=== PATIENT | female | born 1995 | race Hispanic/Latino ===

== ENCOUNTER 2016-07-31 01:47 | Emergency (ER) | payer OTHER ==
[~2016-07-31] VITALS: Ht 160 cm; Wt 83.9 kg
[~2016-07-31 01:47] MED LIST: DULCOLAX10 MG PR; GOLYTELY1 PDR PO; POLYTRIM O200 GTT/BO OPH; VICODIN5-300 PO
--- NOTE | 2016-07-31 02:04 | ED GI/GU/ABDOMINAL COMPLAINT ---
History of Present Illness General Chief Complaint: Nausea, Vomiting, Diarrhea Stated Complaint: ABD PAIN, +NVD X 3 HOURS AGO Source: patient, family, old records Exam Limitations: no limitations Vital Signs & Intake/Output Vital Signs & Intake/Output Vital Signs Date Time Temp Pulse Resp B/P Pulse O2 O2 Flow FiO2 Ox Delivery Rate 07/31 0555 98.9 100 16 115/68 96 Room Air 07/31 0156 99.1 98 20 132/76 97 Room Air Allergies Coded Allergies: NO KNOWN ALLERGIES (07/31/16) Reconcile Medications Bisacodyl (Dulcolax) 10 MG SUP 1 TAB OH 4 TIMES/DAY PRN CONSTIPATION HYDROCODONE/ACETAMINOPHEN (Hydrocodon-Acetaminophen 5-325) 1 EACH TABLET 1 TAB PO Q6H PRN pain PEG 3350/NA SULF,BICARB,CL/KCL (Golytely Packet) 1 EACH POWD.PACK 1 GAL PO ONCE CONSTIPATION Polytrim (Polytrim Eye Drops) 10 ML DROPS 1 GTT OPH 4 TIMES/DAY conjunctivitis Triage Note: PT TO ER COMPLAINING OF ABD PAIN. N/V FOR 3 HOURS. DENIES DIARRHEA.PT STATES TEMP EARLIER WAS 101.5. PT STATES SHE HAS TAKEN BENTYL AND TUMS WITH NO RELIEF. Triage Nurses Notes Reviewed? yes ? Y Is pt currently ? No HPI: Patient presents with sharp stabbing pain to bilateral upper quadrant associated with nausea vomiting. Patient started this morning, worsened tonight. There are no aggravating or mitigating factors. There is no radiation of the pain. The pain is 8 out of 10. Patient denies any dysuria or diarrhea. Patient has not noticed any blood in her vomitus. Past History Travel History Traveled to [place] past 21 day No Medical History Any Pertinent Medical History? see below for history Gastrointestinal: irritable bowel syndrome Endocrine: LUPUS Surgical History Surgical History: cholecystectomy Psychosocial History What is your primary language Nigerian Tobacco Use: Never used ETOH Use: denies use Illicit Drug Use: denies illicit drug use Family History Hx Contributory? No Review of Systems Review of Systems Constitutional: Reports: no symptoms. EENTM: Reports: no symptoms. Respiratory: Reports: no symptoms. Cardiovascular: Reports: no symptoms. GI: Reports: see HPI, abdominal pain, nausea, vomiting. Genitourinary: Reports: no symptoms. Musculoskeletal: Reports: no symptoms. Skin: Reports: no symptoms. Neurological/Psychological: Reports: no symptoms. Hematologic/Endocrine: Reports: no symptoms. Immunologic/Allergic: Reports: no symptoms. All Other Systems: Reviewed and Negative Physical Exam Physical Exam General Appearance: well developed/nourished, alert, awake, moderate distress Head: atraumatic, normal appearance Eyes: Bilateral: PERRL, EOMI, other (ANICTERIC). Ears, Nose, Throat, Mouth: hearing grossly normal, DRY MUCOSAL Neck: normal inspection, supple, full range of motion Respiratory: normal breath sounds, chest non-tender, no respiratory distress, lungs clear Cardiovascular: regular rate/rhythm, normal peripheral pulses Gastrointestinal: normal bowel sounds, soft, no organomegaly, tenderness (B/L UQ AND PERIUMBICAL), NO REBOUND OR GUARDING Back: normal inspection, normal range of motion, NO cva TENDERNESS Extremities: normal range of motion Neurologic/Psych: no motor/sensory deficits, awake, alert, oriented x 3, normal mood/affect Skin: intact, normal color, warm/dry Core Measures ACS in differential dx? No Severe Sepsis Present: No Septic Shock Present: No Progress Differential Diagnosis: appendicitis, biliary colic (RETAINED STONE), diverticulitis, ectopic , gastritis, hepatitis, ischemic bowel, inflamm bowel dis, intrauterine , pancreatitis, PUD/GERD, UTI/pyelo Plan of Care: Orders Procedure Date/time Status Add-on Test (ER Only) 07/31 0250 Active HUMAN BETA HCG TITRE 07/31 211 Complete LIPASE 07/31 202 Complete HUMAN BETA HCG SCREEN 07/31 202 Complete COMPREHENSIVE METABOLIC PANEL 07/31 202 Complete CBC WITHOUT DIFFERENTIAL 07/31 202 Complete AMYLASE 07/31 202 Complete Laboratory Tests 07/31/16 0212: Anion Gap 14, Estimated GFR > 60, BUN/Creatinine Ratio 10.0, Glucose 95, Calcium 9.4, Total Bilirubin 0.7, AST 26, ALT 42, Alkaline Phosphatase 69, Total Protein 6.9, Albumin 3.8, Globulin 3.1, Albumin/Globulin Ratio 1.2, Amylase 76, Lipase 116, Beta HCG, Quant 2005.9, Total Beta HCG POSITIVE, CBC w Diff NO MAN DIFF REQ , RBC 4.78, MCV 78.3 L, MCH 26.1 L, RDW 13.7, MPV 7.9, Gran % 64.4, Lymphocytes % 26.2, Monocytes % 6.0, Eosinophils % 3.0, Basophils % 0.4, Absolute Granulocytes 7.1 H, Absolute Lymphocytes 2.9, Absolute Monocytes 0.7 H, Absolute Eosinophils 0.3, Absolute Basophils 0, PUBS MCHC 33.4 Diagnostic Imaging: Viewed by Me: Ultrasound. Discussed w/RAD: Ultrasound. Radiology Impression: PATIENT: TAQUERIA ARELLANO PRESENT AGE: 20 PATIENT ACCOUNT NO: [id number] : 94 LOCATION: ER ORDERING PHYSICIAN: PAOLA MATHIS MD SERVICE DATE: 07/31/16 EXAM TYPE: US - US TRANSVAG EXAMINATION: US OBSTETRICAL < 14 WEEKS CLINICAL INFORMATION: Right adnexal pain. . Rule out ectopic. LMP is 05/27/2016 corresponding to a gestational age of 9 weeks 2 days, EZIO 03/03/2017. COMPARISON : None. TECHNIQUE: Real-time ultrasound was performed transabdominally and transvaginally . FINDINGS: The uterus is anteverted in position. Within the endometrial cavity is a well formed gestation sac measuring 0.48 cm in mean sac diameter (0.6 x 0.4 x 0.5 cm). A yolk sac is present with a normal inner diameter of 1 mm. pole is not yet identified. The right ovary measures 3.3 x 1.5 x 1.7 cm, and the left ovary measures 3.8 x 2.7 x 2.6 cm and contains a 2.3 cm corpus luteum. Normal arterial and venous blood flow is present within both ovaries on spectral Doppler. OTHER SIGNIFICANT FINDINGS: A small amount of free fluid is present in the pelvic cul-de-sac. IMPRESSION: Single viable intrauterine estimated to be 5 weeks 0 days menstrual age. Estimated date of delivery is 04/02/2017. DICTATED BY: CHRISTIAN WEISS MD DATE/TIME DICTATED :07/31/16556 [employer]:DULCE DATE/TIME TRANSCRIBED:07/31/16556 CONFIDENTIAL, DO NOT COPY WITHOUT APPROPRIATE AUTHORIZATION. < Electronically signed in Other Vendor System> SIGNED BY: CHRISTIAN WEISS MD 07/31/16 0606 Initial ED EKG: none Comments: Patient is much more comfortable. I reexamination she has slight tenderness to the right upper and right lower quadrant. There is no rebound or guarding. Patient informed of the positive . Family was outside of the room when this news was given and the patient does not want her family to know. Patient advised of the ultrasound results with the family was out of the room. The mother is covering and has passed quite a few questions. For this reason we 'll not put on the discharge diagnoses as it will possibly come up in the paperwork and the mother has already requested to be given the paperwork. Departure Departure Disposition: HOME OR SELF CARE Condition: Stable Clinical Impression Primary Impression: Upper abdominal pain, unspecified Secondary Impressions: Vomiting Referrals: JIMMIE LEON MD (PCP/Family) Additional Instructions: RETURN IF SYMPTOMS WORSEN OR FOR ANY CONCERNS Departure Forms: Customer Survey General Discharge Information Prescriptions: Current Visit Scripts Ondansetron (Zofran Odt) 1 TAB SL TID PRN NAUSEA #10 TAB
[2016-07-31 02:20] LABS: ABSOLUTE BASOPHIL COUNT 0 /CUMM (0.0-0.2); ABSOLUTE EOSINOPHIL COUNT 0.3 /CUMM (0.0-0.7); ABSOLUTE GRANULOCYTE CT 7.1 /CUMM (1.4-6.5); ABSOLUTE LYMPH COUNT 2.9 /CUMM (1.2-3.4); ABSOLUTE MONOCYTE COUNT 0.7 /CUMM (0.10-0.60); BASOPHIL % 0.4 % (0.0-2.0); GRANULOCYTE % 64.4 % (42.2-75.2); HEMATOCRIT 37.4 % (37-47); MEAN CORPUSCULAR HGB 26.1 PG (27.0-31.0); MEAN CORPUSCULAR HGB CONC 33.4 G/DL (33.0-37.0); MEAN CORPUSCULAR VOLUME 78.3 FL (81.0-99.0); MEAN PLATELET VOLUME 7.9 FL (7.4-10.4); PLATELET COUNT 308 /CUMM (130-400); RBC DISTRIBUTION WIDTH 13.7 % (11.5-14.5); RED BLOOD CELL CT 4.78 /CUMM (4.20-5.40)
[2016-07-31 05:55] VITALS: BP 115/68
--- NOTE | 2016-07-31 06:06 | ULTRASOUND REPORT ---
EXAMINATION: US OBSTETRICAL < 14 WEEKS CLINICAL INFORMATION: Right adnexal pain. . Rule out ectopic. LMP is 05/27/2016 corresponding to a gestational age of 9 weeks 2 days, EZIO 03/03/2017. COMPARISON: None. TECHNIQUE: Real-time ultrasound was performed transabdominally and transvaginally . FINDINGS: The uterus is anteverted in position. Within the endometrial cavity is a well formed gestation sac measuring 0.48 cm in mean sac diameter (0.6 x 0.4 x 0.5 cm). A yolk sac is present with a normal inner diameter of 1 mm. pole is not yet identified. The right ovary measures 3.3 x 1.5 x 1.7 cm, and the left ovary measures 3.8 x 2.7 x 2.6 cm and contains a 2.3 cm corpus luteum. Normal arterial and venous blood flow is present within both ovaries on spectral Doppler. OTHER SIGNIFICANT FINDINGS: A small amount of free fluid is present in the pelvic cul-de-sac. IMPRESSION: Single viable intrauterine estimated to be 5 weeks 0 days menstrual age. Estimated date of delivery is 04/02/2017.
[2016-07-31] MEDS ORDERED: ZOFRAN ODT4 M1 SL (06:18)
== END 2016-07-31 06:26 ==
LOC: ERH 01:47
PROVIDERS: Emergency Medicine
DX: O26.91 Pregnancy related conditions, unspecified, first trimester (principal); R10.11 Right upper quadrant pain; R10.12 Left upper quadrant pain; R11.10 Vomiting, unspecified; Z3A.01 Less than 8 weeks gestation of pregnancy
CPT/HCPCS: 76817; 96361; 96374; 96375; J1885; J2405

== ENCOUNTER 2016-09-19 12:24 | Emergency (ER) | payer OTHER ==
[~2016-09-19 12:24] MED LIST changes: +ZOFRAN ODT4 M1 SL
--- NOTE | 2016-09-19 13:41 | ED GI/GU/ABDOMINAL COMPLAINT ---
History of Present Illness General Chief Complaint: General Adult Stated Complaint: SENT FROM OB OFFICE FOR DEHYDRATION 12WKS PREG Source: patient, family Exam Limitations: no limitations Vital Signs & Intake/Output Vital Signs & Intake/Output Vital Signs Date Time Temp Pulse Resp B/P Pulse O2 O2 Flow FiO2 Ox Delivery Rate 09/19 1506 98.4 88 18 103/57 99 Room Air 09/19 1226 97.6 90 18 120/81 98 Room Air Allergies Coded Allergies: NO KNOWN ALLERGIES (07/31/16) Reconcile Medications Calcium Carbonate (TUMS) (Unknown Strength) TAB.CHEW (Unknown Dose) PO AD PRN GI (Reported) Vit No.130/Iron/FA ( Tablet) 27 MG IRON-800 MCG TABLET 1 TAB PO DAILY (Reported) Ranitidine HCl (Zantac) (Unknown Strength) TABLET (Unknown Dose) PO PRN GI ( Reported) Triage Note: SENT BY CONVENTION MANAGER FOR FLUIDS, PT STATES THAT SHE HAS N/V FOR WEEKS, ABLE TO HOLD SOME FLUIDS DOWN BUT NO APPETITE DUE TO NAUSEA. KATHARINE ANY ABD PAIN /CRAMPING OR VAGIANAL DISCHARGE Triage Nurses Notes Reviewed? yes ? Y Is pt currently ? No HPI: Patient is a 21-year-old female approximately 12 weeks presents for evaluation of dehydration. Patient reports she was at her 12 week appointment today with her gift consultant [facility] in [place] when they noticed that her blood pressure was low, her heart rate was fast and they were concerned that patient was dehydrated. Patient reports that she has been nauseous throughout her with a heartburn sensation. Patient vomits once a day to once every other day. Patient reports that she has had decreased oral intake due to the nausea and concern that taking in food and fluids will cause vomiting. Patient reports that she's been taking vitamins and using a C band to try to help with the nausea without improvement. Patient was prescribed Diclegis today, has not started taking. Positive intermittent dyspnea. Patient denies vaginal bleeding, lower abdominal pain, fevers, chills Past History Travel History Traveled to [place] past 21 day No Medical History Any Pertinent Medical History? 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 No Review of Systems Review of Systems Constitutional: Denies: chills, fever. EENTM: Reports: no symptoms. Respiratory: Reports: cough (mild intermittent), short of breath. Cardiovascular: Denies: chest pain. GI: Reports: nausea, vomiting. Denies: abdominal pain. Genitourinary: Reports: see HPI. Musculoskeletal: Reports: no symptoms. Skin: Reports: no symptoms. Neurological/Psychological: Reports: no symptoms. Hematologic/Endocrine: Reports: no symptoms. Immunologic/Allergic: Reports: no symptoms. Physical Exam Physical Exam General Appearance: well developed/nourished, alert, awake Head: atraumatic, normal appearance Eyes: Bilateral: normal appearance, PERRL, EOMI. Ears, Nose, Throat, Mouth: hearing grossly normal, moist mucous membrane Neck: normal inspection, supple, full range of motion Respiratory: normal breath sounds, chest non-tender, no respiratory distress, lungs clear Cardiovascular: regular rate/rhythm Gastrointestinal: normal bowel sounds, soft, non-tender Back: normal inspection, normal range of motion Extremities: normal range of motion Neurologic/Psych: no motor/sensory deficits, awake, alert, oriented x 3, normal gait, normal mood/affect Skin: intact, normal color, warm/dry Core Measures ACS in differential dx? No Severe Sepsis Present: No Septic Shock Present: No Progress Differential Diagnosis: DEHYDRATION, HYPEREMESIS GRAVIDARUM, ELECTROLYTE ABNORMALITY, THREATENED MISCARRIAGE, DISCOMFORT OF , PE, UTI Plan of Care: Orders Procedure Date/time Status URINALYSIS 09/19 1345 Complete COMPREHENSIVE METABOLIC PANEL 09/19 1345 Complete CBC WITHOUT DIFFERENTIAL 09/19 1345 Complete Laboratory Tests 09/19/16 1610: Urine Color YEL, Urine Clarity CLEAR, Urine pH 6.0, Ur Specific [place] 1.015, Urine Protein NEG, Urine Ketones 40 H, Urine Nitrite NEG, Urine Bilirubin NEG, Urine Urobilinogen 0.2, Ur Leukocyte Esterase NEG, Ur Microscopic EXAM NOT REQUIRED, Urine Hemoglobin NEG, Urine Glucose NEG 09/19/16 1449: Anion Gap 11, Estimated GFR > 60, BUN/Creatinine Ratio 10.0, Glucose 71, Calcium 9.5, Total Bilirubin 0.4, AST 19, ALT 40, Alkaline Phosphatase 65, Total Protein 6.7, Albumin 3.7, Globulin 3.0, Albumin/Globulin Ratio 1.2 09/19/16 1400: CBC w Diff NO MAN DIFF REQ, RBC 5.08, MCV 78.8 L, MCH 26.4 L, RDW 15.8 H, MPV 8.2, Gran % 77.7 H, Lymphocytes % 14.0 L, Monocytes % 5.9, Eosinophils % 0.9, Basophils % 1.5, Absolute Granulocytes 11.6 H, Absolute Lymphocytes 2.1, Absolute Monocytes 0.9 H, Absolute Eosinophils 0.1, Absolute Basophils 0.2, PUBS MCHC 33.[address] Miranda 09/19/2016 4:19:59 PM: Patient reports significant improvement in nausea and acid reflux sensation. Tolerating oral fluids. Patient ambulatory to the bathroom without difficulty. Awaiting urinalysis. 09/19/2016 5:15:59 PM: Patient feeling significantly improved. Patient tolerating oral fluids. Results of labs and urinalysis discussed with patient. Patient reports that her dyspnea has also improved after medications and fluids. Patient appears stable for discharge and follow-up with her gift consultant. (YI CASPER,SARAH) Initial ED EKG: none Departure Departure Time of Disposition: 1715 Disposition: HOME OR SELF CARE Condition: Stable Clinical Impression Primary Impression: Dehydration Referrals: JIMMIE LEON MD (PCP/Family) Additional Instructions: Follow-up with your gift consultant for further evaluation. Take the Diclegis as directed. Try to increase your fluid intake. Slowly advance your diet as tolerated. Return to the ER if worsening of symptoms. Departure Forms: Customer Survey General Discharge Information
[2016-09-19 14:09] LABS: ABSOLUTE BASOPHIL COUNT 0.2 /CUMM (0.0-0.2); ABSOLUTE EOSINOPHIL COUNT 0.1 /CUMM (0.0-0.7); ABSOLUTE GRANULOCYTE CT 11.6 /CUMM (1.4-6.5); ABSOLUTE LYMPH COUNT 2.1 /CUMM (1.2-3.4); ABSOLUTE MONOCYTE COUNT 0.9 /CUMM (0.10-0.60); BASOPHIL % 1.5 % (0.0-2.0); EOSINOPHIL % 0.9 % (0-5); GRANULOCYTE % 77.7 % (42.2-75.2); MEAN CORPUSCULAR HGB 26.4 PG (27.0-31.0); MEAN CORPUSCULAR HGB CONC 33.5 G/DL (33.0-37.0); MEAN CORPUSCULAR VOLUME 78.8 FL (81.0-99.0); MEAN PLATELET VOLUME 8.2 FL (7.4-10.4); PLATELET COUNT 304 /CUMM (130-400); RBC DISTRIBUTION WIDTH 15.8 % (11.5-14.5); RED BLOOD CELL CT 5.08 /CUMM (4.20-5.40); WHITE BLOOD CELL COUNT 14.9 /CUMM (4.8-10.8)
[2016-09-19] MEDS ORDERED: ZANTAC150 M1 PO (16:30)
[2016-09-19] MEDS ORDERED: PRENATAL TABLE1 EAC2 PO (16:30)
[2016-09-19] MEDS ORDERED: TUMS200 MG PO (16:31)
[2016-09-19 17:45] VITALS: BP 115/57
== END 2016-09-19 17:49 ==
LOC: ERH 12:24
PROVIDERS: Physician Assistant
DX: O99.89 Other specified diseases and conditions complicating pregnancy, childbirth and the puerperium (principal); E86.0 Dehydration; Z3A.12 12 weeks gestation of pregnancy; R11.2 Nausea with vomiting, unspecified
CPT/HCPCS: 81003; 96361; 96374; 96375; J1200; J2405

== ENCOUNTER 2016-09-21 20:03 | Emergency (ER) | payer OTHER ==
[~2016-09-21] VITALS: Ht 162.6 cm; Wt 90.7 kg
[~2016-09-21 20:03] MED LIST changes: +PRENATAL TABLE1 EAC2 PO; +TUMS200 MG PO; +ZANTAC150 M1 PO
[2016-09-21 20:14] VITALS: BP 104/70
[2016-09-21] MEDS ORDERED: ZOFRAN ODT4 M1 SL (22:28)
--- NOTE | 2016-09-21 22:28 | ED GI/GU/ABDOMINAL COMPLAINT ---
History of Present Illness General Chief Complaint: Nausea, Vomiting, Diarrhea Stated Complaint: VOMITING, 12 WEEKS Source: patient, old records Exam Limitations: no limitations Vital Signs & Intake/Output Vital Signs & Intake/Output Vital Signs Date Time Temp Pulse Resp B/P Pulse O2 O2 Flow FiO2 Ox Delivery Rate 09/21 2013 98.4 84 18 104/70 98 Room Air ED Intake and Output 09/22 0000 09/21 1200 Intake Total 2000 Output Total Balance 2000 Intake, IV 2000 Patient 200 lb Weight Allergies Coded Allergies: NO KNOWN ALLERGIES (07/31/16) Reconcile Medications Calcium Carbonate (TUMS) (Unknown Strength) TAB.CHEW (Unknown Dose) PO AD PRN GI (Reported) Ondansetron (Zofran Odt) 4 MG TAB.RAPDIS 1 TAB SL Q6P PRN NAUSEA/VOMITING Vit No.130/Iron/FA ( Tablet) 27 MG IRON-800 MCG TABLET 1 TAB PO DAILY (Reported) Ranitidine HCl (Zantac) (Unknown Strength) TABLET (Unknown Dose) PO PRN GI ( Reported) Triage Note: PT 12 WEEKS TO [facility] WITH C/O NAUSEA/VOMITING, UNABLE TO KEEP FOOD/LIQUIDS DOWN SINCE BEGINING OF , SYMPTOMS GETTING WORSE. LAST OBGYN VISIT 09/19 WHEN PT WAS SENT TO ER FOR DEHYDRATION. ALSO PT C/O DIZZINESS AND SOB, O2SAT 98% ON RA, PT DENIES ANY PAIN, VSS. . Triage Nurses Notes Reviewed? yes ? Y Is pt currently ? No HPI: Patient presents for evaluation of repeated episodes of nonbilious nonbloody vomiting that began abruptly 2 days ago. Patient's symptoms have been severe and intermittent. Nothing seems to make her feel better. She was evaluated 2 days ago in the [facility] emergency department and prescribed a nausea medication that her insurance company will not fill. She denies any associated fever or cold symptoms diarrhea or dysuria. She has an intrauterine at 12 weeks established by her REIMBURSEMENT DIRECTOR doctor. This is her first . Patient also denies any vaginal bleeding or suprapubic cramping. Past History Travel History Traveled to [place] past 21 day No Medical History Any Pertinent Medical History? 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 No Review of Systems Review of Systems Constitutional: Reports: no symptoms. EENTM: Reports: no symptoms. Respiratory: Reports: no symptoms. Cardiovascular: Reports: no symptoms. GI: Reports: see HPI. Genitourinary: Reports: no symptoms. Musculoskeletal: Reports: no symptoms. Skin: Reports: no symptoms. Neurological/Psychological: Reports: no symptoms. Hematologic/Endocrine: Reports: no symptoms. Immunologic/Allergic: Reports: no symptoms. All Other Systems: Reviewed and Negative Physical Exam Physical Exam Gastrointestinal: see below Comments: Gen.: Well-nourished, well-developed, no acute respiratory distress. Head: Normocephalic, atraumatic. Eyes: Normal inspection bilaterally Ears: Normal inspection bilaterally Nose: Normal inspection Throat/mouth : Moist mucosa Neck: Supple, full range of motion, no goiter Heart: Regular rate and rhythm, no murmurs rubs or gallops Lungs: Clear to auscultation bilaterally with normal air entry Chest: Nontender Back: Normal range of motion Abdomen: Soft, nontender, nondistended, normal bowel sounds Extremities: Normal range of motion grossly, equal radial pulses, no cyanosis clubbing or edema Neurologic: Cranial nerves grossly intact, speech is clear Skin: warm and dry Psychiatric: Calm, cooperative, no apparent delusions or hallucinations Core Measures ACS in differential dx? No Severe Sepsis Present: No Septic Shock Present: No Progress Differential Diagnosis: viral gastritis, dyspepsia, nausea of Plan of Care: Laboratory Tests 09/21/16 2019: Urine Test Cancelled Initial ED EKG: none Comments: 09/21/2016 11:15:19 PM Patient has begun tolerating clear liquids but states she doesn't feel much better than when she arrived. I ordered Phenergan and I will reevaluate for a better response. 09/22/2016 12:32:55 AM patient states she feels much better relief with the Phenergan and feels ready to go home. Departure Departure Disposition: HOME OR SELF CARE Condition: Stable Clinical Impression Primary Impression: Hyperemesis gravidarum Referrals: JIMMIE LEON MD (PCP/Family) Additional Instructions: Zofran as needed for nausea or vomiting. Clear liquid diet (including Gatorade or Powerade for the electrolytes and carbohydrates) and advance as tolerated. Follow-up with your REIMBURSEMENT DIRECTOR doctor on Friday for reevaluation. Return if any concerns or sudden worsening. Departure Forms: Customer Survey General Discharge Information Prescriptions: Current Visit Scripts Promethazine HCl 1 TAB PO Q6P PRN NAUSEA/VOMITING #12 TAB
[2016-09-22] MEDS ORDERED: PROMETHAZINE HC25 M3 PO (00:34)
== END 2016-09-22 00:56 ==
LOC: ERH 20:03
DX: O21.0 Mild hyperemesis gravidarum (principal)
CPT/HCPCS: 81025; 96361; 96374; 96375; J2405; J2550

== ENCOUNTER 2017-09-19 19:22 | Emergency (ER) | payer SELFPAY ==
[~2017-09-19 19:22] MED LIST changes: +IBUPROFEN800 M1 PO; +LEVSIN-SL0.125 MG SL; +PERCOCET 5-3251 EACH PO; +PROMETHAZINE HC25 M3 PO; +REGLAN10 M1 PO
[2017-09-19 19:30] VITALS: BP 124/80
--- NOTE | 2017-09-19 19:47 | ED DYSPNEA/ASTHMA COMPLAINT ---
History of Present Illness General Chief Complaint: General Adult Stated Complaint: PT WAS ON RX AND STILL FEEL SOB Source: patient, old records Exam Limitations: no limitations Vital Signs & Intake/Output Vital Signs & Intake/Output Vital Signs Date Time Temp Pulse Resp B/P B/P Pulse O2 O2 Flow FiO2 Mean Ox Delivery Rate 09/19 1929 97.8 94 20 124/80 96 Room Air Allergies Coded Allergies: sumatriptan (From IMITREX) (HIVES 09/19/17) Reconcile Medications Albuterol Sulfate 2.5 MG/0.5 ML VIAL.NEB 1 Vial INH/DMITRY Q4 ASTHMA Hyoscyamine Sulfate (Levsin-Sl) 0.125 MG TAB.SUBL 1-2 TAB SL Q4P PRN abdominal pain Ipratropium [place] (Atrovent Hfa) 17 MCG/ACTUATION HFA.AER.AD 2.5 ML INH Q6P PRN ASTHMA 30 DAY SUPPLY Metoclopramide HCl (Reglan) 10 MG TABLET 1 TAB PO 4 TIMES/DAY PRN GERD, nausea 30 minutes before meals and bedtime Ondansetron (Zofran Odt) 4 MG TAB.RAPDIS 1 TAB SL TID PRN nausea/vomiting Prednisone 20 MG TABLET 1 TAB PO BID ASTHMA Triage Note: PER PT "BASICALLY SOB WHOLE MONTH OF AUGUST" CHARLES MCKINLEY NOT WORKING 2ND ROUND OF [employer] DAY 3 NOT HELPING DRY NONPRODIUCTIVE COUGH UNABLE TO WORK 8 HR DAY "TOO WINDED" ALSO USING NEBS HX OF ASTHMA LMP 08/12. CONSERVSING IN FULL SENTENCES Triage Nurses Notes Reviewed? yes : No Patient currently breastfeeds: No HPI: 22F PMH asthma with several weeks of persistent shortness of breath, dyspnea on exertion, and dry cough. Reports intermittent fevers, but no chills or n/v/d. Eating well. Has been given Azithromycin, Albuterol, and Prednisone by her PCP 4 days ago with no improvement, and symptomatic treatment by urgent care a week before that. She feels like she cannot catch her breath at work and it is affecting her functionality. No sick contacts or recent travel. Past History Travel History Traveled to [place] past 21 day No Medical History Any Pertinent Medical History? 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 No Review of Systems Review of Systems Constitutional: Reports: no symptoms. EENTM: Reports: no symptoms. Respiratory: Reports: no symptoms. Cardiovascular: Reports: no symptoms. GI: Reports: no symptoms. Genitourinary: Reports: no symptoms. Musculoskeletal: Reports: no symptoms. Skin: Reports: no symptoms. Neurological/Psychological: Reports: no symptoms. Hematologic/Endocrine: Reports: no symptoms. Immunologic/Allergic: Reports: no symptoms. All Other Systems: Reviewed and Negative Physical Exam Physical Exam General Appearance: well developed/nourished, no apparent distress Head: atraumatic, normal appearance Eyes: Bilateral: normal appearance. Ears, Nose, Throat: normal pharynx, normal ENT inspection Neck: normal inspection, supple Respiratory: wheezing Cardiovascular: regular rate/rhythm Gastrointestinal: soft, non-tender Extremities: normal inspection, normal capillary refill, normal range of motion Neurologic/Psych: awake, alert, oriented x 3, normal mood/affect Skin: intact, normal color, warm/dry Core Measures ACS in differential dx? No CVA/TIA Diagnosis No Sepsis Present: No Sepsis Focused Exam Completed? No Progress Differential Diagnosis: asthma, AMI, altitude sickness, bronchitis, costochondritis, CHF, COPD, musculoskeletal pain, pericarditis, pulmonary embolism, pneumonia, pneumothorax, rib fracture, unstable angina Plan of Care: Orders Procedure Date/time Status RAPID VIRAL INFLUENZA A 09/19 2000 Complete URINE 09/19 1928 Complete URINALYSIS 09/19 1928 Complete Current Medications Sig/Radha Start time Last Medication Dose Stop Time Status Admin Methylprednisolone 125 MG ONCE ONE 09/19 1999 CAN (Solu Medrol) 09/19 2000 Laboratory Tests 09/19/17 1930: Urine Color YEL, Urine Clarity CLEAR, Urine pH 6.0, Ur Specific [place] 1.020, Urine Protein NEG, Urine Ketones NEG, Urine Nitrite NEG, Urine Bilirubin NEG, Urine Urobilinogen 0.2, Ur Leukocyte Esterase NEG, Ur Microscopic EXAM NOT REQUIRED, Urine Hemoglobin NEG, Urine Glucose NEG, Urine Test NEGATIVE Microbiology 09/19 2030 NASOPHARYN: Influenza Virus A & B Rapid Smear - COMP Diagnostic Imaging: Viewed by Me: Radiology Read. Discussed w/RAD: Radiology Read. Radiology Impression: PATIENT: TAQUERIA ARELLANO PRESENT AGE: 22 PATIENT ACCOUNT NO: [id number] : 94 LOCATION: [facility] ORDERING PHYSICIAN: Teena Vega MD SERVICE DATE: 09/19/17 EXAM TYPE : RAD - XRY-PORTABLE CHEST XRAY EXAMINATION: XR PORTABLE CHEST CLINICAL INFORMATION: Cough. Left lower lobe bronchi. Bilateral wheezing. COMPARISON: None TECHNIQUE: Portable frontal view of the chest was obtained. 8:03 PM FINDINGS: No significant abnormality is noted involving the heart, lungs, mediastinum, bony thorax or soft tissues. IMPRESSION: Unremarkable examination. DICTATED BY: Gurdeep Dorantes MD DATE/TIME DICTATED:09/19/172032 SAP BPC ARCHITECT :DULCE DATE/TIME TRANSCRIBED:09/19/172032 Initial ED EKG: none Departure Departure Disposition: HOME OR SELF CARE Condition: Stable Clinical Impression Primary Impression: Asthma exacerbation Referrals: Patient Has No Primary Care Dr (PCP/Family) Additional Instructions: Follow up with your PCP. See the process control specialist referred. Take the Prednisone as prescribed and stop taking the Prednisone you have at home. If you experiencing new or worsening symptoms then return to emergency room. Departure Forms: Customer Survey General Discharge Information Prescriptions: Current Visit Scripts Ipratropium [place] (Atrovent Hfa) 2.5 ML INH Q6P PRN ASTHMA #30 INHA 30 DAY SUPPLY Albuterol Sulfate 1 Vial INH/DMITRY Q4 #60 Vial Prednisone 1 TAB PO BID #10 TAB Critical Care Note Critical Care Note Critical Care Time: 30-74 min
--- NOTE | 2017-09-19 20:37 | RADIOLOGY REPORT ---
EXAMINATION: XR PORTABLE CHEST CLINICAL INFORMATION: Cough. Left lower lobe bronchi. Bilateral wheezing. COMPARISON: None TECHNIQUE: Portable frontal view of the chest was obtained. 8:03 PM FINDINGS: No significant abnormality is noted involving the heart, lungs, mediastinum, bony thorax or soft tissues. IMPRESSION: Unremarkable examination.
[2017-09-19] MEDS ORDERED: ATROVENT HFA12.9 GM INH (21:05)
[2017-09-19] MEDS ORDERED: PREDNISONE20 M1 PO (21:05)
[2017-09-19] MEDS ORDERED: ALBUTEROL2.5 MG/0.5 INH/SOL (21:05)
== END 2017-09-19 21:16 ==
LOC: ERH 19:22
DX: J45.901 Unspecified asthma with (acute) exacerbation (principal); R50.9 Fever, unspecified; R05 Cough
CPT/HCPCS: 1263; 71045; 81003; 81025; 87804; 87804-59

== ENCOUNTER 2018-02-11 15:46 | Emergency (ER) | payer OTHER ==
[~2018-02-11] VITALS: Ht 165.1 cm; Wt 86.2 kg
[~2018-02-11 15:46] MED LIST changes: +ALBUTEROL2.5 MG/0.5 INH/SOL; +ATROVENT HFA12.9 GM INH; +PREDNISONE20 M1 PO
[2018-02-11 16:25] LABS: ABSOLUTE BASOPHIL COUNT 0 /CUMM (0.0-0.2); ABSOLUTE EOSINOPHIL COUNT 0.2 /CUMM (0.0-0.7); ABSOLUTE GRANULOCYTE CT 7.2 /CUMM (1.4-6.5); ABSOLUTE LYMPH COUNT 2.4 /CUMM (1.2-3.4); ABSOLUTE MONOCYTE COUNT 0.6 /CUMM (0.10-0.60); BASOPHIL % 0.5 % (0.0-2.0); EOSINOPHIL % 1.5 % (0-5); GRANULOCYTE % 69.3 % (42.2-75.2); HEMATOCRIT 39.6 % (37-47); MEAN CORPUSCULAR HGB 26.3 PG (27.0-31.0); MEAN CORPUSCULAR VOLUME 79.6 FL (81.0-99.0); MEAN PLATELET VOLUME 8.3 FL (7.4-10.4); PLATELET COUNT 301 /CUMM (130-400); RED BLOOD CELL CT 4.98 /CUMM (4.20-5.40); WHITE BLOOD CELL COUNT 10.4 /CUMM (4.8-10.8)
--- NOTE | 2018-02-11 16:42 | ED GENERAL ADULT ---
History of Present Illness General Chief Complaint: Dizziness Stated Complaint: SIB PCP FOR DIZZINESS Source: patient, family Exam Limitations: no limitations Vital Signs & Intake/Output Vital Signs & Intake/Output Vital Signs Date Time Temp Pulse Resp B/P B/P Pulse O2 O2 Flow FiO2 Mean Ox Delivery Rate 02/11 1800 98.1 82 20 107/70 99 Room Air 02/11 1552 98.0 98 18 123/81 97 Room Air Allergies Coded Allergies: sumatriptan (From IMITREX) (PER PT BELIEVED SHE HAD A SEIZURE 02/11/18) Reconcile Medications Albuterol Sulfate 2.5 MG/3 ML (0.083 %) VIAL.NEB 1 Vial INH/DMITRY Q4P PRN ASTHMA (Reported) Levonorgestrel (Mirena) 20 MCG/24 HOUR (5 YEARS) IUD CONTROL (Reported) Triage Note: PT STATES THAT SHE HAS BEEN HAVING ON AND OFF DIZZINESS AND RINGING IN HER EARS FOR THE PAST FEW MONTHS BUT THAT IT HAS BEEN GETTING WORSE. HAD A PMD APPOINTMENT AT 4 FOR SAME , BUT THEY CALLED HER AND TOLD HER IF SHE COMES TO ER SHE CAN GET BLOOD WORK AND TEST RESULTS FASTER. DENIES CP/SOB, HAS NAUSEA WHEN EPISODES HAPPEN Triage Nurses Notes Reviewed? yes : No Patient currently breastfeeds: No HPI: Patient is a 22-year-old female with past medical history of anxiety who presents today for nonspecific symptoms which have been present for the past 2 months, but are worsening in severity and frequency. She reports waxing and waning tinnitus, forgetfulness, fogginess, episodes where she poorly cannot hear anything around her, dizziness, and headaches. She does not have an established primary care physician but was scheduled to see one today at 4 PM; they reportedly called her and told her to present to the emergency department because she could "get the workup done a little bit faster." She has no strokelike symptoms at arrival. She notes that her symptoms began in the period and resolved somewhat when she finished breast-feeding. She is tearful regarding her symptoms and frustrated that she does not know the etiology. Past History Travel History Traveled to [place] past 21 day No Medical History Any Pertinent Medical History? 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 No Review of Systems Review of Systems Constitutional: Reports: see HPI. Denies: chills, diaphoresis, fever, malaise, weakness. EENTM: Reports: hearing changes. Denies: blurred vision, double vision, visual changes , epistaxis, throat swelling, mouth pain, tooth pain. Respiratory: Denies: cough, short of breath. Cardiovascular: Denies: chest pain, orthopena, syncope. GI: Denies: bloating, constipation. Genitourinary: Reports: no symptoms. Musculoskeletal: Reports: no symptoms. Skin: Reports: no symptoms. Neurological/Psychological: Reports: anxiety, cognitive dysfunction, confusion. Denies: ataxia, paresthesia , tingling, tremors, tonic-clonic seizures. Hematologic/Endocrine: Reports: no symptoms. Immunologic/Allergic: Reports: no symptoms. All Other Systems: Reviewed and Negative Physical Exam Physical Exam General Appearance: well developed/nourished, no apparent distress, alert, awake , anxious, comfortable Comments: HEENT: Hyperacuity of her right-sided hearing as compared to the left side: Rubbing my fingers together over her left ear produces normal sounds subjectively, but over the right ear causes her to jump as if startled. [place]- [place]pike is equivocal, but head movement does cause some exacerbation of dizziness. Inspection of the head reveals a normocephalic cranium with no signs of trauma. Ophtho: Extraocular muscles are intact and pupils are equal and reactive to light bilaterally with no afferent pupillary defect. The sclera are noninjected , and there is no obvious discharge. Neck: The trachea is midline, there is no obvious asymmetry or mass over the thyroid, and there is no midline cervical spine tenderness Respiratory: The lungs are clear and equal to auscultation bilaterally without wheezes, rales, or rhonchi. The patient exhibits no signs of labored breathing. Cardiac: Regular rhythm and non-tachycardic without appreciable murmurs on auscultation. No obvious JVD. GI: Examination of the abdomen reveals no significant focal tenderness in any of the four quadrants. There is negative Soliman's sign, negative McBurney's point tenderness, negative [place] sign, negative Yeh-Castro sign, and no signs of peritonitis whatsoever on percussion or deep palpation. The skin is intact with no sign of trauma or infection. : Deferred Neuro: The patient is oriented to person, place, time, and situation, with no obvious focal motor deficits. There were no sensory deficits, and the patient exhibit purposeful movement of all 4 extremities. Cranial nerves II through XII are intact, and gait is normal. Behavioral: Anxious, but subjectively not having panic attacks or anxiety during the episodes in question. Dermatologic: Dermatologic examination reveals no diffuse rashes or exanthems, no petechiae, no ecchymoses, and no other signs of erythema or infection. Core Measures ACS in differential dx? No CVA/TIA Diagnosis: No Sepsis Present: No Sepsis Focused Exam Completed? No Progress Differential Diagnoses I considered the following diagnoses in my evaluation of the patient: absence seizures, Tinnitus, Benign Peripheral Vertigo, Electrolyte Abnormality, ICH, Intracranial Mass Plan of Care: Orders Procedure Date/time Status URINE 02/11 1547 Complete URINALYSIS 02/11 154 Complete COMPREHENSIVE METABOLIC PANEL 02/11 154 Complete CBC WITHOUT DIFFERENTIAL 02/11 1547 Complete EKG 02/11 154 Active Laboratory Tests 02/11/18 1725: Urine Color YEL, Urine Clarity CLEAR, Urine pH 6.0, Ur Specific [place] 1.020, Urine Protein NEG, Urine Ketones NEG, Urine Nitrite NEG, Urine Bilirubin NEG, Urine Urobilinogen 0.2, Ur Leukocyte Esterase MOD H, Ur Microscopic SEDIMENT EXAMINED, Urine RBC 5-10 H, Urine WBC 15-25 H, Ur Epithelial Cells MANY H, Urine Bacteria MANY H, Urine Mucus MOD H, Urine Hemoglobin MOD H, Urine Glucose NEG, Urine Test NEGATIVE 02/11/18 1604: Anion Gap 14, Estimated GFR > 60, BUN/Creatinine Ratio 17.1, Glucose 113 H, Calcium 9.8, Total Bilirubin 0.4, AST 21, ALT 25, Alkaline Phosphatase 73, Total Protein 7.2, Albumin 4.3, Globulin 2.9, Albumin/Globulin Ratio 1.5, CBC w Diff NO MAN DIFF REQ, RBC 4.98, MCV 79.6 L, MCH 26.3 L, MCHC 33.0, RDW 14.0, MPV 8.3, Gran % 69.3, Lymphocytes % 23.1, Monocytes % 5.6, Eosinophils % 1.5, Basophils % 0.5, Absolute Granulocytes 7.2 H, Absolute Lymphocytes 2.4, Absolute Monocytes 0.6, Absolute Eosinophils 0.2, Absolute Basophils 0 Initial ED EKG: none Comments: Patient presents for nonspecific symptoms as described in HPI. Workup was negative including head CT. I do not feel that she has an emergent medical condition. I did cover her with antibiotics for a possible UTI, although her symptoms are minimal. She will follow-up with her PCP, and I have referred her to Dr. Mireles who is on-call for neurology for further workup. She may possibly need an MRI or other neurologic status. I have instructed her to return to the emergency department for any new or worsening symptoms. Stable at time of discharge. Departure Departure Time of Disposition: 1842 Disposition: HOME OR SELF CARE Condition: Stable Clinical Impression Primary Impression: Encounter for medical screening examination Referrals: Chi BORDEN,Santana Palmer. Additional Instructions: Your blood work and CT scan of the head were normal in the ER today. Your urine showed a possible infection, so we have sent an antibiotic called Macrobid to your pharmacy. Attached is the number for Dr. Mireles from neurology. Please follow-up with your primary physician and with him in the office for reassessment and further testing. Departure Forms: Customer Survey General Discharge Information Prescriptions: Current Visit Scripts Nitrofurantoin Monohyd/M-Cryst (Macrobid 100 MG Capsule) 1 CAP PO BID #10 CAP with food Critical Care Note Critical Care Note Critical Care Time: non-applicable
[2018-02-11] MEDS ORDERED: MIRENA1 EACH (17:39)
[2018-02-11] MEDS ORDERED: ALBUTEROL2.5 MG/3 M INH/SOL (17:39)
--- NOTE | 2018-02-11 18:04 | CT SCAN REPORT ---
EXAMINATION: CT HEAD WITHOUT CONTRAST CLINICAL INFORMATION: Tinnitus. Absence seizures. COMPARISON: None. TECHNIQUE: Contiguous axial images of the brain were obtained without IV contrast. DLP: 612 mGy-cm. FINDINGS: There are no pathologic extra-axial fluid collections. The lateral, third, fourth ventricles are nondilated and concordant with the appearance of the sulci. There is no evidence for acute intraparenchymal hemorrhage or infarct. There is neither mass nor mass effect. There is no shift of midline structures. The paranasal sinuses and mastoid air cells are clear. There are no osseous lesions. IMPRESSION: No evidence for acute intracranial injury. Please note that a noncontrast head CT may not identify all entities that could manifest as tinnitus or an absence seizure. Consider correlation with brain MRI to assess the IACs and hippocampi if deemed clinically appropriate.
[2018-02-11] MEDS ORDERED: MACROBID 100 M100 MG PO (18:46)
[2018-02-11 18:54] VITALS: BP 139/90
== END 2018-02-11 18:57 ==
LOC: ERH 15:46
PROVIDERS: Physician Assistant
DX: H93.19 Tinnitus, unspecified ear (principal)
CPT/HCPCS: 81001; 81025; 93005; 93010; 96360; 96361